=== PATIENT | male | born 1985 | race Caucasian/White ===

== ENCOUNTER → 2016-05-19 | Outpatient (CLI) | payer BC, OTHER ==
[~2016-05-19] MED LIST: BLOO1KIT; CETI10TA84 PO; FLNIN/ NAE; INSUINJ4 SQ; NVLGIPEN SC; [UNRECOGNIZED DRUG - CODE]
--- NOTE | 2016-05-19 12:08 | DIAGNOSTIC IMAGING REPORT ---
LEFT ANKLE MIN 3 VIEWS ROUTINE CLINICAL HISTORY: LEFT ANKLE PAIN COMPARISON: None. DISCUSSION: No acute fractures or dislocations are visualized. The ankle mortise appears intact on these nonstress views. There is mild bilateral soft tissue swelling. IMPRESSION: Mild soft tissue swelling. No fractures identified. Electronically signed by: Pradip Mohan M.D. 05/19/2016 12:07 PM Dictated Date/Time: 05/19/2016 12:06 PM
== END | disposition home or self-care (01) ==
LOC: C.RAD1850 11:43
PROVIDERS: ATTEND Family Medicine
DX: S93.409A Sprain of unspecified ligament of unspecified ankle, initial encounter (principal); X58.XXXA Exposure to other specified factors, initial encounter